=== PATIENT | female | born 1975 | race Caucasian/White ===

== ENCOUNTER 2021-12-29 16:15 | Outpatient (CLI) | payer OTHER | END 2021-12-29 16:16 | disposition home or self-care (01) | LOC: CSHCT 16:15 | PROVIDERS: ATTEND Internal Medicine Cardiovascular Disease | DX: R42 Dizziness and giddiness (principal) ==

== ENCOUNTER 2023-04-15 15:07 | Outpatient (CLI) | payer OTHER | END 2023-04-15 15:08 | disposition home or self-care (01) | LOC: CSHMAMMO 15:07 | PROVIDERS: ATTEND Family Medicine | DX: Z12.31 Encounter for screening mammogram for malignant neoplasm of breast (principal) | CPT/HCPCS: 77063; 77067 ==